=== PATIENT | male | born 1960 | race Caucasian/White ===

== ENCOUNTER 2017-01-22 23:34 | Emergency (ER) | payer OTHER ==
[~2017-01-22] VITALS: Ht 175.3 cm; Wt 100.0 kg
[2017-01-22 23:37] VITALS: BP 189/90; PULSE 65; RESP 16; O2SAT 96
--- NOTE | 2017-01-22 23:54 | ED.REPORT ---
HPI-Abd Pain M 40 and Over Date of Service January 22, 2017 ED Provider: Breezy Macias MD A 56 year old male with a history of pre-diabetes and testicular cancer s/p surgical removal presents to the ED with dull, cramping abdominal pain onset last night, after a normal bowel movement. The pain is similar to the urge to defecate. The patient has had intermittent runny diarrhea and small BMs since onset. His pain increased after dinner this evening, worst in the RLQ. The patient denies fever, chills, nausea, vomiting, or other symptoms. Nursing Notes Stated Complaint: LOWER RT ABD PAIN Chief Complaint: Male Abdominal Pain Nursing Notes Reviewed: Yes (Altia, Unyqe not reconciled) Allergies: Coded Allergies: No Known Allergies (Unverified , 01/22/17) Scheduled PRN Ondansetron ODT (Ondansetron ODT) 8 Mg Tab.rapdis 8 MG PO Q4H PRN PRN For Nausea oxyCODONE-Acetaminophen 5-325 mg (oxyCODONE-Acetaminophen 5-325 mg) 1 Each Tablet 1-2 TAB PO Q6H PRN PRN For Pain General Time Seen by MD: 23:50 Chief Complaint Abdominal pain Hx Obtained From: Patient Arrived By: Walk-in Sudden in Onset?: No Onset Occurred: Yesterday (Last Night) Symptom Duration: Since onset Progression since Onset: Gradually worsening Location: : RLQ Quality: Painful Severity: Current: Moderate Severity: Maximum: Moderate Pertinent Negative: Relieved by nothing Recent Healthcare: No recent doctor visit Past Medical History Past Medical History Notes: Normal colonoscopy 07/2016 Past Medical History Testicular cancer s/p surgery "Pre-diabetes" on metformin Past Surgical History Testicular cancer surgery Smoking History Unknown if Ever Smoker Social History Other Social History: Good social support, Ambulatory Status Independent Review of Systems Constitutional: Denies: Chills, Fever Respiratory: Denies: Non-productive cough, Shortness of breath GI: Reports: Abdominal pain (Worst in RLQ), Diarrhea, Denies: Nausea, Vomiting Complete sys rev & neg: except as marked. Physical Exam Initial Vital Signs Vital Signs (First) Date Time Temp Pulse Resp B/P Pulse Ox O2 Delivery O2 Flow Rate FiO2 01/22/17 23:37 36.6 65 16 189/90 96 Room Air Initial VS: Reviewed, Vital signs abnormal (HTN) Head / Eyes: Atraumatic, Normocephalic ENT: Conjunctiva normal, No scleral icterus Neck: Supple, Full range of motion Skin: Warm, Dry, No cyanosis Neurologic: Alert, Oriented, Nonfocal Psychiatric: Mood/affect normal, Behavior normal, Normal thought content General/Constitutional: Awake, Alert, No acute distress Appearance / Presentation: Positive: Uncomfortable Respiratory / Chest: Breath sounds NL, Breath sounds = bilat, No respiratory distress Cardiovascular: Heart rate NL, Regular rhythm, Heart sounds NL Abdomen: Soft, Non-tender, No distention Interpretation & Diagnostics Lab Results Interpretation Result Diagram: 01/22/17 0007 01/22/17 0007 Test 01/22/17 00:07 01/23/17 00:18 01/23/17 02:00 White Blood Count 9.0th/mm3 (3.8-10.1) Red Blood Count 5.08mil/mm3 (4.40-5.80) Hemoglobin 15.3g/dL (13.8-17.2) Hematocrit 44.3% (41.0-50.0) Mean Corpuscular Volume 87.2fL (81-100) Mean Corpuscular Hemoglobin 30.1pg (27.0-35.0) Mean Corpuscular Hemoglobin Concent 34.5% (32.0-37.0) Red Cell Distribution Width 13.6% (12.3-15.4) Platelet Count 149bil/L (150-400) Neutrophils (%) (Auto) 71.5% (40-74) Lymphocytes (%) (Auto) 14.5% (14-46) Monocytes (%) (Auto) 11.2% (4-12) Eosinophils (%) (Auto) 2.4% (0-5) Basophils (%) (Auto) 0.3% (0-3) Sodium Level 137mEq/L (134-144) Potassium Level 4.4mEq/L (3.5-5.2) Chloride Level 95mEq/L (97-108) Carbon Dioxide Level 25mmol/L (18-29) Blood Urea Nitrogen 24mg/dL (6-24) Creatinine 1.41mg/dL (0.76-1.27) Estimat Glomerular Filtration Rate 55mL/min (>59) Glucose Level 167mg/dL (60-99) Calcium Level 9.4mg/dL (8.5-10.1) Magnesium Level 1.6mg/dL (1.6-2.6) Total Bilirubin 0.5mg/dL (0.0-1.2) Aspartate Amino Transf (AST/SGOT) 82U/L (0-50) Alanine Aminotransferase (ALT/SGPT) 99U/L (0-44) Alkaline Phosphatase 98U/L (25-150) Total Protein 7.5g/dL (6.4-8.4) Albumin 4.3g/dL (3.4-5.0) Lipase 30U/L (13-60) Hold Sharma Top Tube Received (Received) Urine Color Yellow (YELLOW) Urine Appearance Clear (CLEAR,HAZY) Urine pH 7.5 (5.0-8.0) Urine Specific [place] 1.010 (1.003-1.035) Urine Protein Negativemg/dL (NEG,TRACE) Urine Glucose (UA) Negativemg/dL (NEGATIVE) Urine Ketones Tracemg/dL (NEGATIVE) Urine Occult Blood Trace (NEGATIVE) Urine Nitrite Negative (NEGATIVE) Urine Bilirubin Negative (NEGATIVE) Urine Urobilinogen Normalmg/dL (NORMAL) Urine Leukocyte Esterase Negative (NEGATIVE) Lab Results Interpretation: CBC normal CMP mild renal insufficiency UA without markers of infection CT Abd / Pelvis Interpretation IMPRESSION: 2 mm right renal stone. 2 mm distal right renal stone with mild right hydronephrosis. Transmitted to ED at 01/23/2017 - 1:14:31 AM PDT Study type: Abdominal CT IV contrast Interpretation / Wet Read by: Interpret - Radiologist Re-Eval/Medical Decision Source of Hx: Old records Time of Eval: 01:30 Patient Status: Condition improved Re-Evaluation/Progress Note: Discussed with patient CT and lab results, diagnosis, and plan for discharge. Follow-up and return to the ER instructions given. Patient agrees with plan for care and all questions were addressed. Counseled Regarding: Diagnosis, Lab results, Need for follow-up, When/why to return to ED Discharge & Departure Primary Impression: Kidney stone Additional Impression: Hypertension Hypertension type: essential hypertension Qualified Code: I10 - Essential ( primary) hypertension Disposition: Home Vital Signs - All Vital Signs Date Time Temp Pulse Resp B/P Pulse Ox O2 Delivery O2 Flow Rate FiO2 01/23/17 02:08 67 18 147/84 98 Room Air 01/22/17 23:37 36.6 65 16 189/90 96 Room Air )( All Prior VS Reviewed: Yes Condition: Improved Additional Instructions: 1. Your CT scan revealed that you have a 2mm kidney stone in the distal ureter causing your symptoms. 2. Drink plenty of fluids. 3. Take ibuprofen 400-800mg three times a day (helps relax the ureter in addition to helping with pain) 4. If needed for more severe pain take oxycodone/APAP 5/325 1-2 tabs up to every 4-6 hours. Note: Try to use sparingly. This medication contains narcotic and causes drowsiness. No driving for at least 4 hours after taking. 5. If needed for nausea take ondansetron 8mg (let dissolve underneath the tongue ) up to every 4 hours. 6. Strain your urine, bring any stone you identify to your doctor for analysis. 7. This size stone usually passes on its own without intervention over several days. However, your welcome to follow up with urologist-call the office of Dr. Wall as needed. 8. Your blood pressure was moderately elevated when he first arrived to the department-this may simply be because the pain urine, but he should have it rechecked away from the torture of the emergency department, and follow-up with her primary care physician. Referrals: Milton Givens MD (PCP) Jim Wall MD Attestation Portions of this note were transcribed by Felecia Paniagua. I, Dr. Macias, personally performed the history, physical exam, and medical decision-making; I reviewed and confirmed the accuracy of the information in the transcribed note. Signed by: Karlo Zavala, 01/23/2017, 02:25 copies to: Jim Wall MD; Milton Givens MD, Matthew F MD January 22, 2017 23:54 FELECIA PANIAGUA January 23, 2017 00:03
[2017-01-23] MEDS ORDERED: Ondansetron 2 mg/mL 2 mL Inj IVPUSH ONE (00:05)
[2017-01-23] MEDS: HYDROmorphone 0.5 mg/0.5 mL iSecure Syringe IVPUSH PRN ×3 (00:18→01:54)
[2017-01-23 00:21] LABS: BASOPHILS % (AUTO) 0.3 % (0-3); EOSINOPHILS % (AUTO) 2.4 % (0-5); MONOCYTES % (AUTO) 11.2 % (4-12); Mean Corpuscular Hemoglobin 30.1 pg (27.0-35.0); Mean Corpuscular Volume 87.2 fL (81-100); NEUTROPHILS % (AUTO) 71.5 % (40-74); Platelet Count 149 bil/L (150-400)
[2017-01-23 00:44] LABS: Magnesium 1.6 mg/dL (1.6-2.6)
[2017-01-23] MEDS ORDERED: _Ondansetron ODT 4 mg Tablet PO PRN (01:50)
[2017-01-23] MEDS ORDERED: _oxyCODONE/APAP 5-325 mg Tablet PO PRN (01:50)
[2017-01-23 02:08] VITALS: BP 147/84; PULSE 67; RESP 18; O2SAT 98
[2017-01-23] MEDS ORDERED: ONDA8TAB10 PO (02:08)
[2017-01-23] MEDS ORDERED: OXYC1TAB24 PO (02:08)
[2017-01-23 02:21] LABS: APPEARANCE,URINE CLEAR (CLEAR,HAZY); COLOR,URINE YELLOW (YELLOW); OCCULT BLOOD,URINE TRACE (NEGATIVE); PH,URINE 7.5 (5.0-8.0); UROBILINOGEN,URINE NORMAL (NORMAL)
[2017-01-23 02:30] VITALS: BP 145/82; PULSE 62; RESP 17; O2SAT 99
--- NOTE | 2017-01-23 08:06 | DRSVH ---
PROCEDURE: CT ABDOMEN AND PELVIS WITH CONTRAST ([id number]) INDICATIONS: Abd pain TECHNIQUE: After the administration of intravenous contrast, 5 mm thick sections acquired from the diaphragm to the symphysis. 5 mm coronal and sagittal reformats were acquired. For radiation dose reduction, the following was used: automated exposure control, adjustment of mA and/or kV according to patient siz e. COMPARISON: None. FINDINGS: Image quality: Excellent. ABDOMEN: Lung bases: Lung bases are clear. Heart size is normal. Solid organs: Liver and spleen are normal in size and enhancement. There is diffuse fatty infiltrati on in the liver. Probably a small amount of focal fatty sparing near the gallbladder fossa just super ior to the gallbladder. Gallbladder is within normal limits. Biliary system is non dilated. Pancrea s enhances normally. No adrenal nodules. Kidneys demonstrate normal size and enhancement, with righ t-sided mild hydronephrosis and hydroureter to the level of the bladder. At the right ureter bladder junction is a 1-2 mm partially obstructing stone. Peritoneum and bowel: Bowel loops demonstrate normal wall thickness and caliber. No free fluid or a ir. Multiple sigmoid diverticula are present but no diverticulitis is seen. Nodes and vessels: No retroperitoneal or mesenteric adenopathy by size criteria. Aorta and inferior vena cava are normal in size. Miscellaneous: No ventral hernias. PELVIS: Genitourinary: Bladder wall thickness is normal. Miscellaneous: No adenopathy. There is a left-sided fatty inguinal hernia. Bones: No suspicious bony lesions. No vertebral body compression fractures. IMPRESSION: L. There is a 1-2 mm stone causing mild right hydronephrosis and hydroureter. The stone is positioned at the ureteral bladder junction. 2. No other stones are seen in the kidneys ureters or bladder. 3. Fatty infiltration of the liver a moderate amount. 4. Left fatty inguinal hernia. Multiple sigmoid diverticula without diverticulitis. Dictated by: Hector Mayorga M.D. on 01/23/2017 at 7:58 this report corresponds to the findings of the preliminary NSR report. Approved by: Hector Mayorga M.D. on 01/23/2017 at 8:04
== END 2017-01-23 02:30 | disposition home or self-care (01) ==
LOC: SED 23:34
DX: N20.0 Calculus of kidney (principal); I10 Essential (primary) hypertension; R73.03 Prediabetes; C62.90 Malignant neoplasm of unspecified testis, unspecified whether descended or undescended; Z98.890 Other specified postprocedural states; Z79.84 Long term (current) use of oral hypoglycemic drugs
CPT/HCPCS: 36415; 74177; 80053; 81000; 83690; 83735; 85025; 96374; 96375; 99285; J1170; J2405; Q9967